=== PATIENT | female | born 1965 | race African-American/Black ===

== ENCOUNTER 2020-02-12 00:21 | Emergency (ER) | payer BC ==
[~2020-02-12] VITALS: Ht 175.3 cm; Wt 79.8 kg
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
--- NOTE | 2020-02-12 00:31 | NUR ---
ED Nurse Note: ERMD at bedside
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
--- NOTE | 2020-02-12 01:00 | NUR ---
ED Nurse Note: Blood sent to lab
[2020-02-12 01:04] LABS: BASOPHILS % (AUTO) 0.9 % (0.0-2.0); EOSINOPHILS % (AUTO) 1.3 % (0.0-3.0); HEMATOCRIT 42.1 % (37.0-47.0); HEMOGLOBIN 13.8 G/DL (12.0-16.0); LYMPHOCYTES % (AUTO) 37.1 % (20.0-45.0); MEAN CORPUSCULAR VOLUME 97 FL (80-99); MONOCYTES % (AUTO) 5.9 % (1.0-10.0); NEUTROPHILS % (AUTO) 54.9 % (45.0-75.0); PLATELET COUNT 341 K/UL (150-450); RED BLOOD COUNT 4.36 M/UL (4.20-5.40); RED CELL DISTRIBUTION WIDTH 13.3 % (11.6-14.8); WHITE BLOOD COUNT 11.2 K/UL (4.8-10.8)
[2020-02-12 01:14] VITALS: BP 143/83
[2020-02-12 01:20] LABS: CALCIUM 9.1 MG/DL (8.5-10.1); CREATININE 1.3 MG/DL (0.55-1.30); POTASSIUM 3.5 MMOL/L (3.5-5.1)
[2020-02-12 01:42] LABS: ALBUMIN 3.8 G/DL (3.4-5.0); ALBUMIN/GLOBULIN RATIO 1.2 (1.0-2.7); BILIRUBIN,TOTAL 0.3 MG/DL (0.2-1.0); CKMB 3.1 NG/ML (0.0-3.6)
--- NOTE | 2020-02-12 01:45 | NUR ---
ED Nurse Note: Xray done at bedside
[2020-02-12 01:57] LABS: BILIRUBIN, URINE NEGATIVE (NEGATIVE); GLUCOSE, URINE (UA) NEGATIVE (NEGATIVE); KETONES,URINE NEGATIVE (NEGATIVE); LEUKOCYTE ESTERASE ,URINE 1+ (NEGATIVE); NITRITE,URINE NEGATIVE (NEGATIVE); PH,URINE 5 (4.5-8.0); PROTEIN,URINE 2+ (NEGATIVE); UROBILINOGEN,URINE NORMAL MG/DL (0.0-1.0)
[2020-02-12] MEDS ORDERED: HYDROmorphone 1mg/ml Carpuject IVP ONE (02:00)
--- NOTE | 2020-02-12 02:00 | NUR ---
ED Nurse Note: Urine sent to lab
[2020-02-12 02:08] LABS: APPEARANCE,URINE SLIGHTLY CLOUDY; COLOR,URINE PALE YELLOW
[2020-02-12] MEDS ORDERED: cefTRIAXone 1 GM in NS 55 ML IVPB ONE (02:30)
--- NOTE | 2020-02-12 02:49 | NUR ---
ED Nurse Note: CT scan done
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
[2020-02-12 03:35] VITALS: BP 141/78
--- NOTE | 2020-02-12 03:46 | Diagnostic Imaging Report ---
EXAM: CT Head Without Intravenous Contrast CLINICAL HISTORY: TRAUMA TECHNIQUE: Axial computed tomography images of the head/brain without intravenous contrast. CTDI is 53 mGy and DLP is 1045 mGy-cm. One or more of the following dose reduction techniques were used: automated exposure control, adjustment of the mA and/or kV according to patient size, use of iterative reconstruction technique. COMPARISON: No relevant prior studies available. FINDINGS: Brain: No acute intracranial hemorrhage. No mass effect or midline shift. Ventricles: Unremarkable. No ventriculomegaly. Bones/joints: Unremarkable. No acute fracture. Soft tissues: Unremarkable. Sinuses: Mild chronic sinus disease. Mastoid air cells: Unremarkable as visualized. No mastoid effusion. Orbits: Partially visualized age-indeterminate deformity of the floor of the left orbit on image 4 of series 4. IMPRESSION: No acute intracranial hemorrhage or skull fractures. Age-indeterminate deformity of the floor of the left orbit, partially visualized. If there is acute facial/orbital trauma, recommend correlation with dedicated CT.
[2020-02-12] MEDS ORDERED: IBUPROFEN600 M1 ORAL (04:03)
[2020-02-12] MEDS ORDERED: PREDNISONE20 MG ORAL (04:03)
[2020-02-12] MEDS ORDERED: CEPHALEXIN500 MG ORAL (04:03)
[2020-02-12] MEDS ORDERED: HYDROCODON-ACE1 EA15 ORAL (04:03)
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
--- NOTE | 2020-02-12 04:27 | NUR ---
ER DISCHARGE NOTE: Patient is cleared to be discharged per ERMD, pt is aox4, on room air, with stable vital signs. pt was given dc and prescription instructions, pt was able to verbalize understanding, pt id band and iv site removed without complications. pt is able to ambulate with assistance of geremiaster. pt took all belongings.
[2020-02-12 04:28] VITALS: BP 134/85
== END 2020-02-12 04:34 | disposition home or self-care (01) ==
LOC: EMR 00:45
DX: S09.90XA Unspecified injury of head, initial encounter (principal); G58.9 Mononeuropathy, unspecified; S40.011A Contusion of right shoulder, initial encounter; I10 Essential (primary) hypertension; F14.10 Cocaine abuse, uncomplicated; N30.00 Acute cystitis without hematuria; W19.XXXA Unspecified fall, initial encounter; Y92.9 Unspecified place or not applicable; Z88.0 Allergy status to penicillin; Z88.6 Allergy status to analgesic agent; J32.9 Chronic sinusitis, unspecified
CPT/HCPCS: 36415; 70450; 71045; 73030; 73630; 80053; 80307; 81001; 82553; 84484; 85025; 87086; 87181; 93005; 96365; 96375; 99284; J0696; J1170